=== PATIENT | male | born 1965 | race Caucasian/White ===

== ENCOUNTER 2020-02-03 06:56 | Day surgery (SDC) | payer BC ==
[2020-02-03] MEDS ORDERED: oxyCODONE HCL SR 20MG TAB.SR.12H PO ONE (08:45)
[2020-02-03] MEDS ORDERED: KETOROLAC TROMETHAMINE INJ 30 MG/ML VIAL ONE (08:45)
[2020-02-03] MEDS ORDERED: CELECOXIB 100 MG CAPSULE ONE (08:45)
[2020-02-03] MEDS ORDERED: ACETAMINOPHEN 325 MG TABLET ONE (08:45)
[2020-02-03] MEDS ORDERED: GABAPENTIN 300 MG CAPSULE ONE (08:49)
[2020-02-03] MEDS ORDERED: FENTANYL PF 250MCG/5ML AMPUL ONE ×2 (09:38)
[2020-02-03] MEDS ORDERED: MIDAZOLAM HCL 2 MG/2ML VIAL ONE (09:38)
[2020-02-03] MEDS ORDERED: ROCURONIUM BROMIDE 50 MG/5 ML ONE (09:39)
[2020-02-03] MEDS ORDERED: MEPERIDINE HCL/PF 100 MG/ML DISP.SYRIN ONE (09:40)
[2020-02-03] MEDS ORDERED: GELATIN SPONGE,ABSORBABLE 1 EA SPONGE TP ONE (09:58)
[2020-02-03] MEDS ORDERED: ANESTHESIA TRAY IN PYXIS 1 EA TRAY MC ONE (09:58)
[2020-02-03] MEDS ORDERED: BUPIVACAINE MPF 0.5% W/EPI INJ 30 ML VIAL ONE (09:59)
[2020-02-03] MEDS ORDERED: BUPIVACAINE 0.5 % PF 150 MG/30 ML VIAL ONE (09:59)
[2020-02-03] MEDS ORDERED: CEFAZOLIN 1 GM ONE (09:59)
[2020-02-03] MEDS ORDERED: THROMBIN (BOVINE) 5,000 UNITS VIAL TP ONE (09:59)
[2020-02-03] MEDS ORDERED: HEMOSTATIC MATRIX 8 ML 1 EACH PAD MC ONE (10:21)
[2020-02-03] MEDS ORDERED: LIDOCAINE 1%-EPI 1:100,000 20 ML VIAL ONE (10:31)
[2020-02-03] MEDS ORDERED: methylPREDNISolone ACETATE 80 MG/ML VIAL ONE (10:52)
[2020-02-03] MEDS ORDERED: HYDROMORPHONE 1 MG/1 ML DISP.SYRIN ONE (12:29)
== END 2020-02-03 13:59 | disposition home or self-care (01) ==
LOC: DS 06:56
PROVIDERS: ATTEND Specialist
DX: M51.16 Intervertebral disc disorders with radiculopathy, lumbar region (principal); M54.5 Low back pain; Z79.899 Other long term (current) drug therapy
CPT/HCPCS: 62323; 63030; 72020; 88304; 88311; A6209; A6402; J0690; J1040; J1170; J1885; J2175; J2250; J3010 ×2; J3490 ×2; J2405; J2704; J2710; J2765